=== PATIENT | male | born 1955 | race Caucasian/White ===

== ENCOUNTER → 2019-09-05 09:10 | Outpatient (CLI) | payer MEDICARE, OTHER, SELFPAY ==
--- NOTE | ~2019-09-05 | DEXA_ITS ---
Bone Density Report Name: Valentino Navarro Age: 64 Sex: Male Ethnicity: White Date of : 1955 Indication: parental hip fracture; height loss; postmenopausal Referring Provider: DAVID TOLENTINO Study: Bone densitometry was performed. Exam Date: September 05, 2019 Accession number: [id number] Bone Density: Region BMD T-score Z-score Classification AP Spine (L1-L4) 1.450 3.3 4.0 Normal Femoral Neck (Left) 0.869 -0.4 0.6 Normal Total Hip (Left) 1.085 0.3 0.9 Normal Femoral Neck (Right) 0.839 -0.7 0.4 Normal Total Hip (Right) 1.063 0.2 0.7 Normal Total Hip Mean 1.074 0.3 0.8 Normal World Health Organization criteria for BMD impression classify patients as: Normal (T-score at or above -1.0), Osteopenia (T-score between -1.0 and -2.5), or Osteoporosis (T-score at or below -2.5). 10-year Fracture Risk: FRAX not reported because: All T-scores for Spine Total, Hip Total, Femoral Neck at or above -1.0 Treated for osteoporosis Clinical Information Provided by Patient: Parent has had a hip fracture Is being treated for osteoporosis Has used the following medications: HRT (i.e. estrogen/hormone therapy), Vitamin D, Calcium Patient maximum height was 74 Drinks caffeinated beverages Number of children 0 Impression: The patient has normal bone mass. The patient has risk factors, including: parental hip fracture. Discussion: It is important to ask patients whether they are taking their medications and to encourage continued and appropriate compliance with their osteoporosis therapies to reduce fracture risk. It is also important to review their risk factors and encourage appropriate calcium and vitamin D intakes, exercise, fall prevention and other lifestyle measures. Follow-Up: Consider repeating this study in 2 years to reassess this patient's status, or sooner if there is some new clinical indication. Reported by: [facility] on 09/05/2019 9:54:00 AM. Reviewed, dictated and finalized at location AFrancisco J REY
== END ==
DX: C61 Malignant neoplasm of prostate (principal); Z79.818 Long term (current) use of other agents affecting estrogen receptors and estrogen levels
CPT/HCPCS: 77080

== ENCOUNTER 2021-08-19 11:30 | Outpatient (RCR) | payer MEDICARE, SELFPAY ==
[2021-08-19 12:35] VITALS: BP 133/66; PULSE 92; RESP 20; TEMP 36.3; O2SAT 96
[2021-08-19] MEDS: FAMOTIDINE 20 MG TABLET PO (12:40)
[2021-08-19] MEDS: diphenhydrAMINE HCl CAP 25 MG CAPSULE PO (12:40)
[2021-08-19] MEDS: ACETAMINOPHEN 325 MG TABLET 650 MG PO (12:40)
[2021-08-19] MEDS: BEBTELOVIMAB 175 MG/2 ML VIAL IV PUSH (13:02)
[2021-08-19 13:45] VITALS: BP 138/68; PULSE 78; O2SAT 96
== END 2021-08-19 16:00 ==
LOC: AMCINF 11:30
PROVIDERS: PCP Family Medicine; Referring Provider Family Medicine; Visit Provider Internal Medicine Hematology & Oncology
DX: U07.1 COVID-19 (principal); E11.9 Type 2 diabetes mellitus without complications; I10 Essential (primary) hypertension
CPT/HCPCS: A9270; M0222; Q0222

== ENCOUNTER 2021-09-27 14:01 | Outpatient (CLI) | payer MEDICARE, SELFPAY ==
--- NOTE | ~2021-09-27 | XR_ITS ---
XR thoracic spine 3V DATE: 09/27/2021 14:27 INDICATION: Thoracic spine pain following a fall 2 days ago. TECHNIQUE: AP, lateral, swimmer views COMPARISON: None FINDINGS: There is ossification along the anterior longitudinal ligament from C2 throughout the thora cic spine. There is prominent degenerative spurring in the upper lumbar spine. There is minimal anterolisthesis at C4-5. No fracture or dislocation or bone destruction of the thoracic spine. The thoracic pedicles are intac t. IMPRESSION: Bridging osteophytes throughout the anterior cervical spine and continuing through the th oracic spine No fracture or dislocation or bone destruction of the thoracic spine Prominent degenerative spurring of the upper lumbar spine Reviewed, dictated and finalized at location B. IMPRESSION: Bridging osteophytes throughout the anterior cervical spine and con tinuing through the thoracic spine No fracture or dislocation or bone destruction of the thoracic spine Prominent degenerative spurring of the upper lumbar spine
== END 2021-09-27 14:02 | disposition home or self-care (01) ==
PROVIDERS: PCP Family Medicine; Visit Provider Family Medicine
DX: M54.6 Pain in thoracic spine (principal); M77.8 Other enthesopathies, not elsewhere classified; M46.06 Spinal enthesopathy, lumbar region
CPT/HCPCS: 72072

== ENCOUNTER → 2021-10-07 09:56 | Outpatient (CLI) | payer MEDICARE, SELFPAY ==
--- NOTE | ~2021-10-07 | US_ITS ---
US right upper quadrant INDICATION: Abnormal liver enzymes PROCEDURE: Realtime right upper abdominal ultrasound. COMPARISON: No prior studies for comparison. FINDINGS: The pancreas is normal without focal mass or pancreatic ductal dilation. Echotexture is in creased, consistent with fatty infiltration. There is normal directional flow in the portal vein. There are echogenic mobile foci in the gallbladder lumen, suspicious for gallstones. Common bile heide t measures 5 mm mm. No sonographic Jeff's sign. IMPRESSION: 1: Multiple echogenic foci of the gallbladder, most likely gallstones. 2: Hepatic steatosis. Reviewed, dictated and finalized at location A.
== END ==
PROVIDERS: PCP Family Medicine; Visit Provider Family Medicine
DX: R74.8 Abnormal levels of other serum enzymes (principal); K76.0 Fatty (change of) liver, not elsewhere classified; R93.5 Abnormal findings on diagnostic imaging of other abdominal regions, including retroperitoneum
CPT/HCPCS: 76705

== ENCOUNTER 2023-08-31 00:07 | Day surgery (SDC) | payer MEDICARE, SELFPAY ==
[2023-08-24 12:20] VITALS: BMI 32.8
--- NOTE | 2023-08-24 12:40 | PC.NURSE ---
Spoke with PATIENT regarding medication XARELTO. Pt. verbalizes understanding that the last dose of XARELTO is to be taken on 08/28/2023 and the Endoscopist will instruct them when to restart after the procedure.
[2023-08-31 07:30] VITALS: BP 135/68; PULSE 62; RESP 17; TEMP 36.2; O2SAT 100
[2023-08-31] MEDS: LACTATED RINGERS 1,000 ML 150 ML IV CONT (07:33)
[2023-08-31 07:35] LABS: Glucose Point of Care 119 mg/dl (65-105)
--- NOTE | 2023-08-31 08:10 | WPDANESEPPF ---
Anes - Initial Pre Proc Eval Procedure: Operation Date: 08/31/23 08:30 Proposed Procedures p Colonoscopy - Bimal White MD Date/Time: 08/31/23 08:10 Surgeon: Bimal White MD Pre Op Diagnosis: Personal hx. colon polyps Patient Data Age: 68 Gender: M Height: 1.88 m Weight: 113.4 kg Allergies Allergy/AdvReac Type Severity Reaction Status Date / Time No Known Allergies Allergy Verified 08/31/23 07:15 Home Medications Medication Instructions Recorded Confirmed Type blood-glucose meter #1 ea 01/18/21 05/04/23 Rx blood-glucose meter (OneTouch #1 ea 01/25/21 05/04/23 Rx Verio Flex Start kit) blood sugar diagnostic (OneTouch #100 ea 02/20/21 05/04/23 Rx Verio test strips) lancets 30 gauge #100 ea 02/26/21 05/04/23 Rx rivaroxaban 20 mg tablet (Xarelto) 20 mg PO QPM 04/14/22 08/31/23 History tirzepatide 10 mg/0.5 mL 10 mg (0.5 mL) subcut WEEKLY #2 mL 01/27/23 08/24/23 Rx subcutaneous pen injector oxybutynin chloride 15 mg See Rx Instructions .Route 03/16/23 08/24/23 Rx tablet,extended release 24 hr .COMPLEX #90 tabs chlorthalidone 25 mg tablet See Rx Instructions .Route 04/20/23 08/24/23 Rx .COMPLEX #90 tabs atorvastatin 10 mg tablet See Rx Instructions .Route 05/18/23 08/24/23 Rx .COMPLEX #90 tabs glimepiride 4 mg tablet See Rx Instructions .Route 05/18/23 08/24/23 Rx .COMPLEX #180 tabs metformin 1,000 mg tablet See Rx Instructions .Route 06/11/23 08/24/23 Rx .COMPLEX #180 tabs propranolol 60 mg capsule,24 See Rx Instructions .Route 08/25/23 08/31/23 Rx hr,extended release .COMPLEX #90 caps tamsulosin 0.4 mg capsule See Rx Instructions .Route 08/25/23 08/31/23 Rx .COMPLEX #180 caps Laboratory Tests 08/31/23 07:30 POC Capillary Glucose 119 H mg/dl (65-105) Patient hx anesthesia problems: none Family hx anesthesia problems: none Results Review: All pre-operative results and documents have been reviewed as part of the pre-operative evaluation. [facility] Past Medical History Medical History Dyslipidemia Essential (primary) hypertension Essential tremor Obstructive sleep apnea (adult) (pediatric) Osteoarthritis Paroxysmal atrial fibrillation Prostate cancer (~2018) Type 2 diabetes mellitus without complication, without long-term current use of insulin Surgical History Surgical History S/P partial resection of colon Total knee replacement status (~2017) Family History Family History Grandparent Diabetes mellitus Sibling Hypertension Patient's sister is in good health Patient's brother is in good health Father Hypertension, Onset Age: 55 Heart disease Mother Lung disease Other Family history of cardiovascular disease Social History Social History Smoking status: Never smoker Alcohol intake: current Substance use: never Substance use type: does not use Lack of Transportation: No Lack of Food: Never True Current Housing: I Have Housing Concerned About Future Housing: No Difficulty Paying Gas/Electric Bills: No Difficulty Paying for Meds: No Currently Unemployed: No Education: High School Diploma/GED Difficulty w/ Childcare or Family Care: No Living arrangements: with family Spiritual care concerns: No Anes - Eval Final PreProcedure Day of Procedure 08/31/23 08:10 Patient weight: obese Heart: irregular rhythm Lungs: clear to auscultation Airway: Mallampati scale class II Neurological: alert and oriented Last oral intake: >/= 8 hours ASA classification: III Emergent: no Anesthetic plan: proceed Anesthesia type and monitoring: general GIVS and standard monitoring Results Review: All pre-operative results and documents have been revie
--- NOTE | 2023-08-31 08:27 | PM.HPGS ---
History of Present Illness History of Present Illness Consent: Risks, benefits, and alternatives have been discussed and questions answered. Patient agrees to proceed with procedure. Chief complaint: Personal hx. colon polyps Narrative: Valentino Navarro is a 68 year old male with history of colon polyps Review of Systems Review of Systems: All systems reviewed & are unremarkable except as noted in HPI and below PMFSH Past Medical History Medical History Dyslipidemia Essential (primary) hypertension Essential tremor Obstructive sleep apnea (adult) (pediatric) Osteoarthritis Paroxysmal atrial fibrillation Prostate cancer (~2018) Type 2 diabetes mellitus without complication, without long-term current use of insulin Surgical History Surgical History S/P partial resection of colon Total knee replacement status (~2017) Family History Family History Grandparent Diabetes mellitus Sibling Hypertension Patient's sister is in good health Patient's brother is in good health Father Hypertension, Onset Age: 55 Heart disease Mother Lung disease Other Family history of cardiovascular disease Social History Social History Smoking status: Never smoker Alcohol intake: current Substance use: never Substance use type: does not use Lack of Transportation: No Lack of Food: Never True Current Housing: I Have Housing Concerned About Future Housing: No Difficulty Paying Gas/Electric Bills: No Difficulty Paying for Meds: No Currently Unemployed: No Education: High School Diploma/GED Difficulty w/ Childcare or Family Care: No Living arrangements: with family Spiritual care concerns: No Meds Home Medications and Allergies Home Medications Medication Instructions Recorded Confirmed Type blood-glucose meter #1 ea 01/18/21 05/04/23 Rx blood-glucose meter (OneTouch #1 ea 01/25/21 05/04/23 Rx Verio Flex Start kit) blood sugar diagnostic (OneTouch #100 ea 02/20/21 05/04/23 Rx Verio test strips) lancets 30 gauge #100 ea 02/26/21 05/04/23 Rx rivaroxaban 20 mg tablet (Xarelto) 20 mg PO QPM 04/14/22 08/31/23 History tirzepatide 10 mg/0.5 mL 10 mg (0.5 mL) subcut WEEKLY #2 mL 01/27/23 08/24/23 Rx subcutaneous pen injector oxybutynin chloride 15 mg See Rx Instructions .Route 03/16/23 08/24/23 Rx tablet,extended release 24 hr .COMPLEX #90 tabs chlorthalidone 25 mg tablet See Rx Instructions .Route 04/20/23 08/24/23 Rx .COMPLEX #90 tabs atorvastatin 10 mg tablet See Rx Instructions .Route 05/18/23 08/24/23 Rx .COMPLEX #90 tabs glimepiride 4 mg tablet See Rx Instructions .Route 05/18/23 08/24/23 Rx .COMPLEX #180 tabs metformin 1,000 mg tablet See Rx Instructions .Route 06/11/23 08/24/23 Rx .COMPLEX #180 tabs propranolol 60 mg capsule,24 See Rx Instructions .Route 08/25/23 08/31/23 Rx hr,extended release .COMPLEX #90 caps tamsulosin 0.4 mg capsule See Rx Instructions .Route 08/25/23 08/31/23 Rx .COMPLEX #180 caps Allergies Allergy/AdvReac Type Severity Reaction Status Date / Time No Known Allergies Allergy Verified 08/31/23 07:15 Exam Const: General: comfortable and no acute distress HENMT: Face/Nose/Sinus: Normal nares present Eyes: General: appearance normal, both eyes and all related structures Neck: Neck: no JVD Resp: Auscultation: clear to auscultation bilaterally Cardio: Rate: regular rate Rhythm: regular rhythm GI: Inspection: non-distended GI Palp: Yes Soft to palpation Skin: General skin exam: normal color Neuro: General: gait normal Speech: normal speech Extrem: General: normal to inspection Psych: Mental Status: mental status grossly normal Assessment and Plan Assessment and plan (1)
[2023-08-31 08:50] VITALS: BP 106/57; PULSE 60; RESP 14; O2SAT 97
[2023-08-31 09:00] VITALS: BP 109/64; PULSE 65; RESP 25; O2SAT 95
[2023-08-31 09:10] VITALS: BP 111/67; PULSE 56; RESP 21; O2SAT 100
== END 2023-08-31 09:16 | disposition home or self-care (01) ==
PROVIDERS: PCP Family Medicine; Visit Provider Internal Medicine Gastroenterology
PROC: 0DJD8ZZ Inspection of Lower Intestinal Tract, Via Natural or Artificial Opening Endoscopic (ICD-10-PCS; CPT 45378; principal; 2023-08-31 08:30)
DX: Z12.11 Encounter for screening for malignant neoplasm of colon (principal); D12.2 Benign neoplasm of ascending colon; D12.4 Benign neoplasm of descending colon; D12.8 Benign neoplasm of rectum; K57.30 Diverticulosis of large intestine without perforation or abscess without bleeding; K64.8 Other hemorrhoids; Z98.0 Intestinal bypass and anastomosis status; Z90.49 Acquired absence of other specified parts of digestive tract; I10 Essential (primary) hypertension; I48.0 Paroxysmal atrial fibrillation; E78.5 Hyperlipidemia, unspecified; E11.9 Type 2 diabetes mellitus without complications; G25.0 Essential tremor; Z85.46 Personal history of malignant neoplasm of prostate; E66.9 Obesity, unspecified; Z68.32 Body mass index [BMI] 32.0-32.9, adult; Z79.01 Long term (current) use of anticoagulants; Z79.85 Long-term (current) use of injectable non-insulin antidiabetic drugs; Z79.84 Long term (current) use of oral hypoglycemic drugs
CPT/HCPCS: 45385; 82948; 88305; J2704; J7120

== ENCOUNTER 2024-04-08 13:35 | Outpatient (CLI) | payer MEDICARE, SELFPAY ==
--- NOTE | ~2024-04-08 | XR_ITS ---
EXAMINATION: XR abdomen/kub 1V DATE: 04/08/2024 13:57 INDICATION: Calculus of kidney. TECHNIQUE: A supine view of the abdomen on 2 radiographs was obtained. COMPARISON: CT abdomen and pelvis 01/01/2018 FINDINGS: There are no dilated loops of bowel. There is a small volume of stool in the colon. There a re 2 stones in the right kidney with the larger measuring 5 mm. There are approximately 6 stones in l eft kidney measuring up to 13 mm. There is a 7 mm calcification in the expected area of proximal left ureter that may be a stone. IMPRESSION: 1. 7 mm calcification in the expected area of proximal left ureter that may be a stone. 2. Bilateral kidney stones. Reviewed, dictated and finalized at location [facility]. [facility] REPRESENTATIVE [employer]
--- OUTSIDE RECORDS SUMMARY | 2024-04-08 13:39 | XMS_ITS | Encounter Summary ---
Author Organization [facility] Healthcare Address [address] [place] [address] Care Team Providers Care Supervisor Esters And Emulsifiers Name Role Phone Cinthia Bradford MD Unavailable [phone] Frankie Nogueira MD, Giorgi Perry Unavailable Robe Brenner MD Unavailable [phone] Robby Rock MD Unavailable [phone] Moe Boyd MD Unavailable [phone] Manny Martinez MD Unavailable [phone] Cinthia Bradford MD Primary Care Provider Abhinav Adams MD Primary Care Provider [phone] Brittanie Johnson NP Unavailable [phone] Savanah Das DO Primary Care Provider + [phone] Encounter Details Date Type Department Care Team (Late st Contact Info) Description 06/22/[address] 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 Gender Identity Male 11/10/2022 9:57 PM CDT Sexual Orientation Straight 11/10/2022 9: 57 PM CDT documented as of this encounter Plan of Treatment Not on file documented as of this encounter Visit Diagnoses Not on filedocumented in this encounter Care Teams Supervisor Esters And Emulsifiers Relationship Specialty Start Date End Date Cinthia Bradford MD PCP - General 04/22/18 08/26/18 Abhinav Adams MD [address] [place] [address] PCP - General 08/27/18 01/10/21 Savanah Das DO [address] [place] [address] PCP - General Family Medicine 01/11/21 Cinthia Bradford MD Family Practice 04/01/18 Giorgi David Jr., MD Referring Physician Urology 02/08/18 Robe Brenner MD [address] [address] Consulting Physician Urology 02/08/18 Robby Rock MD [address] [facility] [address] [place] [address] Medical Oncologist/Wire Sawyer Medical Oncology 02/08/18 Moe Boyd MD [address] [place] [address] Radiation Oncologist Radiation Oncology 03/04/18 Manny Martinez MD [address] [facility] [address] [place] [address] Referring Physician Medical Oncology 03/04/18 Brittanie Johnson NP [address] [facility] [address] [place] [address] Nurse Practitioner Nurse Practitioner 07/13/20 documented as of this encounter
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
--- OUTSIDE RECORDS SUMMARY | 2024-04-08 13:39 | XMS_ITS | Clinical Summary ---
Author Organization [facility] Address [address] [place] [id number] Care Team Providers Care Rubber Stamp Maker Name Role Phone Unavailable Primary Care Provider Unavailabl e Social History Tobacco Use Types Packs/Day Years Used Date Smoking Tobacco: Never Assessed Sex and Gender Information Value Date Recorded Sex Assigned at Not on file Legal Sex Male 4:11 PM CDT Gender Identity Not on file Sexual Orientation Not on file Plan of Treatment Health Maintenance Due Date Last Done Comments Colorectal Cancer Screening Colonoscopy (10 Years) 1955 Hepatitis C 1972 DTaP, Tdap and Td Vaccines ( 1 - Tdap) 1973 Zoster Vaccines (1 of 2) 2004 Pneumococcal Vaccine: 65+ Ye ars (1 of 1 - PCV) 05/24/2019 COVID-19 Vaccine ( - 2023-2 5 season) 2023 Influenza Adult (#1) 2023 RSV Immunization or 60+ Years (1 - 1-dose 75+ series) 2029 Meningococcal B Vaccine Aged Out No l onger eligible based on patient's age to complete this topic Meningococcal Vaccine Aged Out No kristopher luana eligible based on patient's age to complete this topic RSV Immunizations Under 20 Months Aged Out No longer eligible based on patient's age to complete this topic
--- OUTSIDE RECORDS SUMMARY | 2024-04-08 13:39 | XMS_ITS | Encounter Summary ---
Author Organization [facility] Healthcare Address [address] [place] [address] Care Team Providers Care Ocean Forwarder Name Role Phone Cinthia Bradford MD Unavailable [phone] Frankie Nogueira MD, Giorgi Perry Unavailable Robe Brenner MD Unavailable [phone] Robby Rock MD Unavailable [phone] Moe Boyd MD Unavailable [phone] Manny Martinez MD Unavailable [phone] Abhinav Adams MD Primary Care Provider +- [phone] Brittanie Johnson NP Unavailable +[phone] Savanah Das DO Primary Care Provider +[phone]- [phone] Encounter Details Date Type Department Care Team (Late st Contact Info) Description 08/31/2018 Telephone [facility] Radiation Oncology at [facility] [address] [place] [address] Clarisse Perrin MA Social History Tobacco Use Types Packs/Day Years Used Date Smoking Tobacco: Never Smokeless Tobacco: Never Alcohol Use Standard Drinks/Week Comments Yes 1 (1 standard drink = 0.6 oz pur e alcohol) Sex and Gender Information Value Date Recorded Sex Assigned at Not on file 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 Gender Identity Male 11/10/2022 9:57 PM CDT Sexual Orientation Straight 11/10/2022 9: 57 PM CDT documented as of this encounter Plan of Treatment Not on file documented as of this encounter Visit Diagnoses Not on filedocumented in this encounter Care Teams Ocean Forwarder Relationship Specialty Start Date End Date Abhinav Adams MD [address] [place] [address] PCP - General 08/27/18 01/10/21 Savanah Das DO [address] [place] [address] PCP - General Family Medicine 01/11/21 Cinthia Bradford MD Family Practice 04/01/18 Giorgi David Jr., MD Referring Physician Urology 02/08/18 Robe Brenner MD [address] [place] [address] Consulting Physician Urology 02/08/18 Robby Rock MD 10 [facility] [address] [place], [place] [address] Medical Oncologist/Supervisor Of Communications Medical Oncology 02/08/18 Moe Boyd MD [address] [place], [place] [address] Radiation Oncologist Radiation Oncology 03/04/18 Manny Martinez MD [address] [place] [address] Referring Physician Medical Oncology 03/04/18 Brittanie Johnson NP [address] [facility] [address] LL LL [address] [place] [address] Nurse Practitioner Nurse Practitioner 07/13/20 documented as of this encounter
--- OUTSIDE RECORDS SUMMARY | 2024-04-08 13:39 | XMS_ITS | Encounter Summary ---
Author Organization [facility] Address [address] [place] [address] Care Team Providers Care Contamination Consultant Name Role Phone Cinthia Bradford MD Primary Care Provider Moe Boyd MD Primary Care Provider Cinthia Bradford MD Unavailable + [phone] Frankei Nogueira MD, Giorgi Perry Unavailable Robe Brenner MD Unavailable [phone] Robby Rock MD Unavailable [phone] Moe Boyd MD Unavailable [phone] Manny Martinez MD Unavailable [phone] Cinthia Bradford MD Primary Care Provider Abhinav Adams MD Primary Care Provider + [phone] Brittanie Johnson NP Unavailable [phone] Savanah Das DO Primary Care Provider + [phone] Encounter Details Date Type Department Care Team (Late st Contact Info) Description 03/04/[address] 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 Gender Identity Male 11/10/2022 9:57 PM CDT Sexual Orientation Straight 11/10/2022 9: 57 PM CDT documented as of this encounter Plan of Treatment Not on file documented as of this encounter Visit Diagnoses Not on filedocumented in this encounter Care Teams Contamination Consultant Relationship Specialty Start Date End Date Cinthia Bradford MD PCP - General Family Practice 07/15/17 03/31/18 Moe Boyd MD [address] [place] [address] PCP - General 04/01/18 04/21/18 Cinthia Bradford MD PCP - General 04/22/18 08/26/18 Abhinav Adams MD [address] [place] [address] PCP - General 08/27/18 01/10/21 Savanah Das DO [address] [place] [address] PCP - General Family Medicine 01/11/21 Cinthia Bradford MD Family Practice 04/01/18 Giorgi David Jr., MD [address] LL [facility] [address] [place] [address] Referring Physician Urology 02/08/18 Robe Brenner MD [address] [place] [address] Consulting Physician Urology 02/08/18 Robby Rock MD 10 [facility] [address] [place] [address] Medical Oncologist/Long Wall Mining Machine Helper Medical Oncology 02/08/18 Moe Boyd MD [address] [facility] [address] LL LL [address] [place] [address] Radiation Oncologist Radiation Oncology 03/04/18 Manny Martinez MD 10 [facility] [address] [place] [address] Referring Physician Medical Oncology 03/04/18 Brittanie Johnson NP [address] [facility] [address] LL [address] [place] [address] Nurse Practitioner Nurse Practitioner 07/13/20 documented as of this encounter
--- OUTSIDE RECORDS SUMMARY | 2024-04-08 13:39 | XMS_ITS | Referral Summary ---
Author Organization [facility] [address] [place] [address] [address] [place] [address] Care Team Providers Care Associate Account Manager Name Role Phone Cinthia Bradford MD Unavailable Frankie Nogueira MD, Giorgi Perry Unavailable Robe Brenner MD Unavailable [phone] Robby Rock MD Unavailable Moe Boyd MD Unavailable Manny Martinez MD Unavailable Brittanie Johnson NP Unavailable Savanah Das DO Primary Care Provider +- [phone] Encounters Date Type Department Care Team Description 03/15/2024 Telephone [facility] Cardiology [address] [place] [address] Cam Eugene MD Med Refill from Last 3 Months Allergies No known active allergies Medications glimepiride [...] MD on 03/04/2018 Chronic atrial fibrillation 09/22/2017 Social History Tobacco Use Types Packs/Day Years Used Date Smoking Tobacco: Never Cigarettes Smokeless Tobacco: Never Tobacco Cessation:Counseling Given: Not Answered Alcohol Use Standard Drinks/Week Comments Yes 1 (1 standard drink = 0.6 oz pur e alcohol) Sex and Gender Information Value Date Recorded Sex Assigned at Not on file Legal Sex Male 5:20 PM IC ENGINEER Gender Identity Male 11/10/2022 9:57 PM CDT Sexual Orientation Straight 11/10/2022 9: 57 PM CDT Last Filed Vital Signs Vital Sign Reading Time Taken Comments Blood Pressure 120/64 05/06/2023 9:03 AM IC ENGINEER Pulse 57 05/06/2023 9:03 AM IC ENGINEER Temperature 36.5 C (97.7 F) 02/25/2019 9:18 AM IC ENGINEER Respiratory Rate 18 02/25/2019 9:18 AM IC ENGINEER Oxygen Saturation 96% 05/06/2023 9:03 AM IC ENGINEER Inhaled Oxygen Concentration - - Weight 117.4 kg (258 lb 12.8 oz) 05/15/2023 9:17 AM CDT Height 185.4 cm (6' 1 ) 05/06/2023 9:03 AM IC ENGINEER Body Mass Index 34.14 05/06/2023 9:03 AM IC ENGINEER Plan of Treatment Not on file Procedures Procedure Name Priority Date/Time Associated Diagnosis Comments PSA DIAGNOSTIC Routine 05/08/2023 7:54 AM IC ENGINEER Prostate cancer (HCC) from Last 3 Months or Most Recently Relevant to Health Maintenance Results * PSA diagnostic (05/08/2023 7:54 AM IC ENGINEER) [facility] PSA 0.2 0.0 - 4.0 ng/mL [facility] - Comment: Hebert ECLIA methodology. According to the [place] [employer], Serum PSA should decrease and [...] of malignant disease. Blood 05/08/2023 7:54 AM IC ENGINEER 05/08/2023 Narrative [facility] - 05/09/2023 5:08 PM IC ENGINEER Performed at: [address] [place], [place] [address], [place] [id number] Supervisor Tumblers: Sampson Bruks PhD, Phone: [phone] [facility] Mine Johnson NP LAB BLOOD ORDERABLES F inal Result [facility] - 01 from Last 3 Months or Most Recently Relevant to Health Maintenance Insurance MEDICARE SOLUTIONS [facility] MEDICARE Address: [address] [address] MEDICARE Address: [facility] [address] [place] [address] [facility] MEDICARE Address: [address] [address] Care Teams Associate Account Manager Relationship Specialty Start Date End Date Savanah Das DO [address] [place] [address] PCP - General Family Medicine 01/11/21 Cinthia Bradford MD Family Practice 04/01/18 Giorgi David Jr., MD Referring Physician Urology 02/08/18 Robe Brenner MD [address] [place] [id number] Consulting Physician Urology 02/08/18 Robby Rock MD 10 [facility] [address] [place], [place] [id number] Medical Oncologist/Dean Of Women Medical Oncology 02/08/18 Moe Boyd MD [address] [place], [place] [address] Radiation Oncologist Radiation Oncology 03/04/18 Manny Martinez MD [address] [place] [address] Referring Physician Medical Oncology 03/04/18 Brittanie Johnson NP [address] [facility] [address] [place] [address] Nurse Practitioner Nurse Practitioner 07/13/20
--- OUTSIDE RECORDS SUMMARY | 2024-04-08 13:39 | XMS_ITS ---
Author Organization [facility] [address] Address [address] [place] [address] Care Team Providers Care Color Paste Mixer Name Role Phone Cinthia Bradford MD Unavailable Frankie Nogueira MD, Giorgi Perry Unavailable [phone] Robe Brenner MD Unavailable [phone] Robby Rock MD Unavailable Moe Boyd MD Unavailable Manny Martinez MD Unavailable Brittanie Johnson NP Unavailable [phone] Savanah Das DO Primary Care Provider [phone]- [phone] Active Problems Problem Noted Date Diagnosed Date Paroxysmal atrial fibrillation (CMS/HCC) 022 Encounter for follow-up surveillance of prostate cancer 06/18/2018 Prostate cancer 02/19/2018 Cancer Staging:Clinical stage from 03/04/2018:Stage CATRACHITO(cT3b, cN1, cM0, PSA: 32, Grade Group: 3) - Signed by Jonathan Katz MD on 03/04/2018 Chronic atrial fibrillation 09/22/2017 Current Oncology Plans LEUPROLIDE (LUPRON) FOR RADIATION ONCOLOGY* Plan Start Date:02/25/2019 Plan Provider:Moe Boyd MD Linked Problems Prostate cancer (HCC) Treatment Medications leuprolide acetate (6 month) (LUPRON) syringe kit Past Plans Specialty Infusion Treatment Plan Name Start Date Discontinue Date Treatment Medications Discontinue Reason Plan Provider LEUPROLIDE (LUPRON) FOR RADIATION ONCOLOGY 08/27/2018 11/26/2018 leuprolide acetate (6 month) (LUPRON) syringe kit Therapy Complete Moe Boyd MD Radiation Treatments * Plan Last Treated On Elapsed Days Fractions Treated Prescribed Fraction Dose Prescribed Total Dose PELVIS 05/24/2018 34 25 220 cGy 5,500 cGy Reference Point Last Treated On Elapsed Days Session Dose Total Dose Pelvis_Nodes 05/24/2018 34 220 cGy 5,500 cGy
== END 2024-04-08 13:36 | disposition home or self-care (01) ==
PROVIDERS: PCP Family Medicine; Visit Provider Family Medicine
DX: N28.89 Other specified disorders of kidney and ureter (principal); N20.0 Calculus of kidney
CPT/HCPCS: 74018

== ENCOUNTER 2024-04-11 12:21 | Outpatient (CLI) | payer MEDICARE, SELFPAY ==
--- OUTSIDE RECORDS SUMMARY | 2024-04-11 12:38 | XMS_ITS | Clinical Summary ---
Author Organization [facility] [address] Address [address] [place] [address] Care Team Providers Care Channel Cementer Name Role Phone Cinthia Bradford MD Unavailable [phone] Frankie Nogueira MD, Giorgi Perry Unavailable Robe Brenner MD Unavailable [phone] Robby Rock MD Unavailable [phone] Moe Boyd MD Unavailable Manny Martinez MD Unavailable [phone] Brittanie Johnson NP Unavailable [phone] Savanah Das DO Primary Care Provider +- [phone] Allergies No known active allergies Medications glimepiride [...] Type Department Care Team Description 03/15/2024 Telephone [facility] Cardiology [address] [place] [address] Cam Eugene MD Med Refill [...] Father (Age 55) presumed f rom fatal [place] in his sleep Mother Mother (Age 73) [...] on file Legal Sex Male 5:20 PM PURSE 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 Gender Identity Male 11/10/2022 9:57 PM CDT Sexual Orientation Straight 11/10/2022 9: 57 PM CDT Obstetrics History Last Filed Vital Signs Vital Sign Reading Time Taken Comments Blood Pressure 120/64 05/06/2023 9:03 AM PURSE SEINER Pulse 57 05/06/2023 9:03 AM PURSE SEINER Temperature 36.5 C (97.7 F) 02/25/2019 9:18 AM PURSE SEINER Respiratory Rate 18 02/25/2019 9:18 AM PURSE SEINER Oxygen Saturation 96% 05/06/2023 9:03 AM PURSE SEINER Inhaled Oxygen Concentration - - Weight 117.4 kg (258 lb 12.8 oz) 05/15/2023 9:17 AM CDT Height 185.4 cm (6' 1 ) 05/06/2023 9:03 AM PURSE SEINER Body Mass Index 34.14 05/06/2023 9:03 AM PURSE SEINER Plan of Treatment Health Maintenance Due Date [...] Comments PSA DIAGNOSTIC Routine 05/08/2023 7:54 AM PURSE SEINER Prostate cancer (HCC) from Last 3 Months or Most Recently Relevant to Health Maintenance Results * PSA diagnostic (05/08/2023 7:54 AM PURSE SEINER) PSA 0.2 0.0 - 4.0 ng/mL [facility] - Comment: Hebert ECLIA methodology. According to the [place] U[employer], Serum PSA should decrease and [...] of malignant disease. Blood 05/08/2023 7:54 AM PURSE SEINER 05/08/2023 Narrative [facility] - 05/09/2023 5:08 PM PURSE SEINER Performed at: - [facility] [id number] Ornamental Plasterer Helper: Sampson Burks PhD, Phone: [phone] [facility] Mine Johnson NP LAB BLOOD ORDERABLES F inal Result [facility] - 01 from Last 3 Months or Most Recently Relevant to Health Maintenance Insurance MEDICARE SOLUTIONS [place] [id number] [facility] MDCR HMO REF [place] [id number] Care Teams Channel Cementer Relationship Specialty Start Date End Date Savanah Das DO [address] LL [facility] [address] [place] [address] PCP - General Family Medicine 01/11/21 Cinthia Bradford MD Family Practice 04/01/18 Giorgi David Jr., MD Referring Physician Urology 02/08/18 Robe Brenner MD [address] [address] Consulting Physician Urology 02/08/18 Robby Rock MD [facility] [address] [place], [place] [id number] Medical Oncologist/Consumer Loan Underwriter Medical Oncology 02/08/18 Moe Boyd MD [address] LL [facility] [address] [place] [address] Radiation Oncologist Radiation Oncology 03/04/18 Manny Martinez MD [address] LL [facility] [address] [place] [address] Referring Physician Medical Oncology 03/04/18 Brittanie Johnson NP [address] LL [facility] [address] [place] [address] Nurse Practitioner Nurse Practitioner 07/13/20
--- OUTSIDE RECORDS SUMMARY | 2024-04-11 12:38 | XMS_ITS | Encounter Summary ---
Author Organization [facility] Address [address] [place] [address] Care Team Providers Care Social Service Director Name Role Phone Cinthia Bradford MD Primary Care Provider Moe Boyd MD Primary Care Provider [phone] Cinthia Bradford MD Unavailable + [phone] Frankie Nogueira MD, Giorgi Perry Unavailable Robe Brenner MD Unavailable [phone] Robby Rock MD Unavailable [phone] Moe Boyd MD Unavailable [phone] Manny Martinez MD Unavailable [phone] Cinthia Bradford MD Primary Care Provider Abhinav Adams MD Primary Care Provider + [phone] Brittanie Johnson NP Unavailable [phone] Savanah Das DO Primary Care Provider + [phone] Encounter Details Date Type Department Care Team (Late st Contact Info) Description 03/04/2018 Telephone [facility] Radiation Oncology at [facility] [address] [place] [address] Clarisse Perrin MA Social History Tobacco Use Types Packs/Day Years Used Date Smoking Tobacco: Never Smokeless Tobacco: Never Alcohol Use Standard Drinks/Week Comments Yes 1 (1 standard drink = 0.6 oz pur e alcohol) Sex and Gender Information Value Date Recorded Sex Assigned at Not on file Legal Sex Male 5:20 PM GROUP PRACTICE PEDIATRICIAN Gender Identity Male 11/10/2022 9:57 PM CDT Sexual Orientation Straight 11/10/2022 9: 57 PM CDT documented as of this encounter Plan of Treatment Not on file documented as of this encounter Visit Diagnoses Not on filedocumented in this encounter Care Teams Social Service Director Relationship Specialty Start Date End Date Cinthia Bradford MD PCP - General Family Practice 07/15/17 03/31/18 Moe Boyd MD [address] [place] [address] PCP - General 04/01/18 04/21/18 Cinthia Bradford MD PCP - General 04/22/18 08/26/18 Abhinav Adams MD [address] [place] [address] PCP - General 08/27/18 01/10/21 Savanah Das DO [address] [place] [address] PCP - General Family Medicine 01/11/21 Cinthia Bradford MD Family Practice 04/01/18 Giorgi David Jr., MD [address] LL [facility] [address] [place] [address] Referring Physician Urology 02/08/18 Robe Brenner MD [address] [place] [address] Consulting Physician Urology 02/08/18 Robby Rock MD 10 [facility] [address] [place] [address] Medical Oncologist/Metrologist Medical Oncology 02/08/18 Moe Boyd MD [address] [facility] [address] [place] [address] Radiation Oncologist Radiation Oncology 03/04/18 Manny Martinez MD 10 [facility] [address] [place] [address] Referring Physician Medical Oncology 03/04/18 Brittanie Johnson NP [address] [facility] [address] LL [address] [place] [address] Nurse Practitioner Nurse Practitioner 07/13/20 documented as of this encounter
--- OUTSIDE RECORDS SUMMARY | 2024-04-11 12:38 | XMS_ITS | Encounter Summary ---
Author Organization [facility] Healthcare Address [address] [place] [address] Care Team Providers Care Sexual Assault Social Worker Name Role Phone Cinthia Bradford MD Unavailable [phone] Frankie Nogueira MD, Giorgi Perry Unavailable Robe Brenner MD Unavailable [phone] Robby Rock MD Unavailable [phone] Moe Boyd MD Unavailable [phone] Manny Martinez MD Unavailable [phone] Abhinav Adams MD Primary Care Provider +- [phone] Brittanie Johnson NP Unavailable [phone] Savanah Das DO Primary Care Provider +[phone] Encounter Details Date Type Department Care Team (Late st Contact Info) Description 08/31/2018 Telephone [facility] Radiation Oncology at [facility] [address] [place] [address] Clarisse Perrin MA Social History Tobacco Use Types Packs/Day Years Used Date Smoking Tobacco: Never Smokeless Tobacco: Never Alcohol Use Standard Drinks/Week Comments Yes 1 (1 standard drink = 0.6 oz pur e alcohol) Sex and Gender Information Value Date Recorded Sex Assigned at Not on file Legal Sex Male 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 Gender Identity Male 11/10/2022 9:57 PM CDT Sexual Orientation Straight 11/10/2022 9: 57 PM CDT documented as of this encounter Plan of Treatment Not on file documented as of this encounter Visit Diagnoses Not on filedocumented in this encounter Care Teams Sexual Assault Social Worker Relationship Specialty Start Date End Date Abhinav Adams MD [address] [place] [address] PCP - General 08/27/18 01/10/21 Savanah Das DO [address] [place] [address] PCP - General Family Medicine 01/11/21 Cinthia Bradford MD Family Practice 04/01/18 Giorgi David Jr., MD Referring Physician Urology 02/08/18 Robe Brenner MD [address] [place] [address] Consulting Physician Urology 02/08/18 Robby Rock MD 10 [facility] [address] [place], [place] [id number] Medical Oncologist/Cut To Length Operator Medical Oncology 02/08/18 Moe Boyd MD [address] [place], [place] [id number] Radiation Oncologist Radiation Oncology 03/04/18 Manny Martinez MD [address] [place] [address] Referring Physician Medical Oncology 03/04/18 Brittanie Johnson NP [address] [facility] [address] [place] [address] Nurse Practitioner Nurse Practitioner 07/13/20 documented as of this encounter
--- OUTSIDE RECORDS SUMMARY | 2024-04-11 12:38 | XMS_ITS | Encounter Summary ---
Author Organization [facility] Healthcare Address [address] [place] [address] Care Team Providers Care Oil Speculator Name Role Phone Cinthia Bradford MD Unavailable [phone] Frankie Nogueira MD, Giorgi Perry Unavailable Robe Brenner MD Unavailable [phone] Robby Rock MD Unavailable [phone] Moe Boyd MD Unavailable [phone] Manny Martinez MD Unavailable [phone] Cinthia Bradford MD Primary Care Provider Abhinav Adams MD Primary Care Provider +- [phone] Brittanie Johnson NP Unavailable [phone] Savanah Das DO Primary Care Provider + [phone] Encounter Details Date Type Department Care Team (Late st Contact Info) Description 06/22/2018 Telephone [facility] Radiation Oncology at [facility] [address] [place] [address] Clarisse Perrin MA Social History Tobacco Use Types Packs/Day Years Used Date Smoking Tobacco: Never Smokeless Tobacco: Never Alcohol Use Standard Drinks/Week Comments Yes 1 (1 standard drink = 0.6 oz pur e alcohol) Sex and Gender Information Value Date Recorded Sex Assigned at Not on file Legal Sex Male 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 Gender Identity Male 11/10/2022 9:57 PM CDT Sexual Orientation Straight 11/10/2022 9: 57 PM CDT documented as of this encounter Plan of Treatment Not on file documented as of this encounter Visit Diagnoses Not on filedocumented in this encounter Care Teams Oil Speculator Relationship Specialty Start Date End Date Cinthia Bradford MD PCP - General 04/22/18 08/26/18 Abhinav Adams MD [address] [place] [address] PCP - General 08/27/18 01/10/21 Savanah Das DO [email or web address] [place] [address] PCP - General Family Medicine 01/11/21 Cinthia Bradford MD Family Practice 04/01/18 Giorgi David Jr., MD Referring Physician Urology 02/08/18 Robe Brenner MD [address] [address] Consulting Physician Urology 02/08/18 Robby Rock MD 10 [facility] [address] [place] [address] Medical Oncologist/Corporate Training Manager Medical Oncology 02/08/18 Moe Boyd MD [address] [place] [address] Radiation Oncologist Radiation Oncology 03/04/18 Manny Martinez MD [address] [facility] [address] [place] [address] Referring Physician Medical Oncology 03/04/18 Brittanie Johnson NP [address] [facility] [address] [place] [address] Nurse Practitioner Nurse Practitioner 07/13/20 documented as of this encounter
--- OUTSIDE RECORDS SUMMARY | 2024-04-11 12:38 | XMS_ITS | Clinical Summary ---
Author Organization [facility] Address [address] [place] [address] Care Team Providers Care Roll Out Manager Name Role Phone Unavailable Primary Care Provider [...]
--- OUTSIDE RECORDS SUMMARY | 2024-04-11 12:38 | XMS_ITS | Referral Summary ---
Author Organization [facility] [address] [place] [address] [address] [place] [address] Care Team Providers Care Release Manager Name Role Phone Cinthia Bradford MD Unavailable Frankie Nogueira MD, Giorgi Perry Unavailable Robe Brenner MD Unavailable [phone] Robby Rock MD Unavailable [phone] Moe Boyd MD Unavailable [phone] Manny Martinez MD Unavailable [phone] Brittanie Johnson NP Unavailable Savanah Das DO Primary Care Provider [phone] Encounters Date Type Department Care Team Description 03/15/2024 Telephone [facility] Cardiology [address] [place] [address] Cam Eugene MD Med Refill [...] on file Legal Sex Male 5:20 PM WANT AD RECEIVER Gender Identity Male 11/10/2022 9:57 PM CDT Sexual Orientation Straight 11/10/2022 9: 57 PM CDT Last Filed Vital Signs Vital Sign Reading Time Taken Comments Blood Pressure 120/64 05/06/2023 9:03 AM WANT AD RECEIVER Pulse 57 05/06/2023 9:03 AM WANT AD RECEIVER Temperature 36.5 C (97.7 F) 02/25/2019 9:18 AM WANT AD RECEIVER Respiratory Rate 18 02/25/2019 9:18 AM WANT AD RECEIVER Oxygen Saturation 96% 05/06/2023 9:03 AM WANT AD RECEIVER Inhaled Oxygen Concentration - - Weight 117.4 kg (258 lb 12.8 oz) 05/15/2023 9:17 AM CDT Height 185.4 cm (6' 1 ) 05/06/2023 9:03 AM WANT AD RECEIVER Body Mass Index 34.14 05/06/2023 9:03 AM WANT AD RECEIVER Plan of Treatment Not on file Procedures Procedure Name Priority Date/Time Associated Diagnosis Comments PSA DIAGNOSTIC Routine 05/08/2023 7:54 AM WANT AD RECEIVER Prostate cancer (HCC) from Last 3 Months or Most Recently Relevant to Health Maintenance Results * PSA diagnostic (05/08/2023 7:54 AM WANT AD RECEIVER) [facility] PSA 0.2 0.0 - 4.0 ng/mL [facility] - Comment: [facility] ECLIA methodology. According to the [employer] [employer], Serum PSA should decrease and [...] of malignant disease. Blood 05/08/2023 7:54 AM WANT AD RECEIVER 05/08/2023 Narrative [facility] - 05/09/2023 5:08 PM WANT AD RECEIVER Performed at: [address] [place], [place] [address], [place] [id number] Clinical Pharmacy Manager: Sampson Burks PhD, Phone: [phone] [facility] Mine Johnson NP LAB BLOOD ORDERABLES F inal Result [facility] - 01 from Last 3 Months or Most Recently Relevant to Health Maintenance Insurance [employer] [place] [address] [facility] Care Teams Release Manager Relationship Specialty Start Date End Date Savanah Das DO [address] [place] [address] PCP - General Family Medicine 01/11/21 Cinthia Bradford MD Family Practice 04/01/18 Giorgi David Jr., MD Referring Physician Urology 02/08/18 Robe Brenner MD [address] [id number] Consulting Physician Urology 02/08/18 Robby Rock MD [address] [facility] [address] [place], [place] [id number] Medical Oncologist/Audio Visual Aide Medical Oncology 02/08/18 Moe Boyd MD [address] [place], [place] [id number] Radiation Oncologist Radiation Oncology 03/04/18 Manny Martinez MD [address] [place] [address] Referring Physician Medical Oncology 03/04/18 Brittanie Johnson NP [address] [facility] [address] [place] [address] Nurse Practitioner Nurse Practitioner 07/13/20
--- OUTSIDE RECORDS SUMMARY | 2024-04-11 12:38 | XMS_ITS ---
Author Organization [facility] [address] [place] [address] Care Team Providers Care Social Work Program Coordinator Name Role Phone Cinthia Bradford MD Unavailable Frankie Nogueira MD, Giorgi Perry Unavailable Robe Brenner MD Unavailable [phone] Robby Rock MD Unavailable Moe Boyd MD Unavailable [phone] Manny Martinez MD Unavailable Brittanie Johnson NP Unavailable Savanah Das DO Primary Care Provider [phone] Active Problems Problem Noted Date Diagnosed Date [...]
[2024-04-11 13:16] LABS: Influenza A QL RT-PCR Negative (Negative); Influenza B QL RT-PCR Negative (Negative); RSV RNA, RT-PCR Negative (Negative); SARS-CoV-2 RNA PCR Negative (Negative)
== END 2024-04-11 12:22 | disposition home or self-care (01) ==
LOC: ANHLAB 12:22
PROVIDERS: PCP Family Medicine; Visit Provider Family Medicine
DX: R50.9 Fever, unspecified (principal)
CPT/HCPCS: 87637

== ENCOUNTER 2024-04-25 13:31 | Outpatient (CLI) | payer MEDICARE, SELFPAY ==
--- NOTE | ~2024-04-25 | CT_ITS ---
CT of the Abdomen and Pelvis: Indication: Hematuria Technique: 2.5 mm axial scans were obtained through the abdomen and pelvis prior to and following in travenous administration of 130 cc of Omnipaque 350. Dose reduction technique was used on this scan b y utilizing automated exposure control and iterative reconstruction technique. The dose-length produc t (DLP) was 2168.85 mGy-cm. Findings: Scans through the lung bases are unremarkable. The liver, spleen, pancreas, and adrenal glands are within normal limits. Small gallstone present. Mu ltiple bilateral nonobstructing renal stones are present, largest in the left kidney measuring 10 mm. There is a 5 mm stone at the very distal left ureter (image 109). No hydronephrosis or hydroureter o n either side. There are atherosclerotic calcifications of the aorta. No lymphadenopathy. No bowel obstruction or bowel wall thickening. There is evidence of prior partial right colectomy. Images through the pelvis were performed. Urinary bladder unremarkable. No pelvic mass seen. No ascit es. Impression: 5 mm distal left ureteral stone without hydronephrosis or hydroureter. Multiple additional bilateral nonobstructing renal stones. Reviewed, dictated and finalized at location . 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 Multiple additional bilateral nonobstructing renal stones.
[2024-04-25 13:55] LABS: Estimated Glomerular Filt Rate > 60
== END 2024-04-25 13:32 | disposition home or self-care (01) ==
LOC: MICIMG 13:32
PROVIDERS: PCP Family Medicine; Visit Provider Urology
DX: N20.1 Calculus of ureter (principal); N20.0 Calculus of kidney; R31.0 Gross hematuria
CPT/HCPCS: 74178; Q9967

== ENCOUNTER 2025-01-20 15:38 | Outpatient (CLI) | payer MEDICARE, SELFPAY ==
--- NOTE | ~2025-01-20 | MR_ITS ---
EXAM/PROCEDURE: MR abdomen wo/w con HISTORY: liver lesion COMPARISON: CT exam from April 25, 2024 TECHNIQUE: Multiplanar pre and postcontrast enhanced abdominal MRI performed. FINDINGS: In the lower right lobe, image 23 series 11, there is a 2.5 x 2.5 cm somewhat circumscribed appearing area of slightly increased signal. This appears slightly diminished on More prominent on postcontrast images such as image 4 3 series 12. No lesion is seen on postcontrast subtraction images. No lesion is seen on T2-weighted sequences. No compelling restricted diffusion. The spleen is upper limits normal in size. No splenic lesion or mass seen. Both kidneys appear normal. Aorta is normal in size. Bones appear normal in signal other than degenerative appearing changes. The gallbladder is slightly contracted with gall stones present but no gross wall thickening or pericholecystic fluid. No biliary ductal dilatation. IMPRESSION: 1. 2.5 x 2.5 cm area of heterogeneous enhancement in the right lobe of the liver may represent benign normal variant perfusion. Follow-up liver/abdominal MRI in 3 months is recommended or sooner if clinically appropriate. LI-RADS 3. 2. The gallbladder is slightly contracted with gall stones but no gross cholecystitis. Reviewed, dictated and finalized at location A. STOS BRAKE LINING FINISHER IMPRESSION: 1. 2.5 x 2.5 cm area of heterogeneous enhancement in the right lobe of the live r may represent benign normal variant perfusion. Follow-up liver/abdominal MRI in 3 months is recommended or sooner if clinically appropriate. LI-RADS 3. 2. The gallbladder is slightly contracted with gall stones but no gross cholecy stitis.
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
--- OUTSIDE RECORDS SUMMARY | 2025-01-20 15:45 | XMS_ITS | Encounter Summary ---
Author Organization [facility] Address [address] [place] [address] Care Team Providers Care Cash Posting Clerk Name Role Phone Cinthia Bradford MD Primary Care Provider Moe Boyd MD Primary Care Provider [phone] Cinthia Bradford MD Unavailable + [phone] Frankie Nogueira MD, Giorgi Perry Unavailable Robe Brenner MD Unavailable [phone] Robby Rock MD Unavailable [phone] Moe Boyd MD Unavailable [phone] Manny Martinez MD Unavailable [phone] Cinthia Bradford MD Primary Care Provider Abhinav Adams MD Primary Care Provider + [phone] Brittanie Johnson NP Unavailable [phone] Savanah Das DO Primary Care Provider + [phone] Nirali Obrien NP Primary Care Provider + [phone] Savanah Das DO Primary Care Provider + [phone] Encounter Details Date Type Department Care Team (Late st Contact Info) Description 03/04/2018 Telephone [facility] Radiation Oncology at [facility] [address] [place] [address] Clarisse Perrin MA Social History Tobacco Use Types Packs/Day Years Used Date Smoking Tobacco: Never Smokeless Tobacco: Never Alcohol Use Standard Drinks/Week Comments Yes 1 (1 standard drink = 0.6 oz pur e alcohol) Sex and Gender Information Value Date Recorded Sex Assigned at Not on file 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 Gender Identity Male 11/10/2022 9:57 PM CDT Sexual Orientation Straight 11/10/2022 9: 57 PM CDT documented as of this encounter Functional Status documented as of this encounter Plan of Treatment Not on file documented as of this encounter Visit Diagnoses Not on filedocumented in this encounter Care Teams Cash Posting Clerk Relationship Specialty Start Date End Date Cinthia Bradford MD PCP - General Family Practice 07/15/17 03/31/18 Moe Boyd MD [address] [place] [address] PCP - General 04/01/18 04/21/18 Cinthia Bradford MD PCP - General 04/22/18 08/26/18 Abhinav Adams MD [address] [place] [address] PCP - General 08/27/18 01/10/21 Savanah Das DO [address] [place] [address] PCP - General Family Medicine 01/11/21 11/30/24 Nirali Obrien, LEANDRA [address] [place] [address] [place] [address] PCP - General Internal Medicine 12/01/24 01/08/25 Savanah Das DO [address] [place] [address] [address] [place] [address] PCP - General Family Medicine 01/09/25 Cinthia Bradford MD Family Practice 04/01/18 Giorgi David Jr., MD [address] [place], [place] [address] Referring Physician Urology 02/08/18 Robe Brenner MD [address] [place] [address] Consulting Physician Urology 02/08/18 Robby Rock MD [address] [place] [address] [address] [place], [place] [id number] Medical Oncologist/Alteration Hand Medical Oncology 02/08/18 Moe Boyd MD [address] [place] [address] Radiation Oncologist Radiation Oncology 03/04/18 Manny Martinez MD [address] [facility] [address] [place], [place] [address] Referring Physician Medical Oncology 03/04/18 Brittanie Johnson NP [address] [place] [address] Nurse Practitioner Nurse Practitioner 07/13/20 documented as of this encounter
--- OUTSIDE RECORDS SUMMARY | 2025-01-20 15:45 | XMS_ITS | Encounter Summary ---
Author Organization [facility] Address [address] [place] [address] Care Team Providers Care Engineer Operations And Maintenance Name Role Phone Cinthia Bradford MD Unavailable [phone] Frankie Nogueira MD, Giorgi Perry Unavailable Robe Brenner MD Unavailable [phone] Robby Rock MD Unavailable [phone] Moe Boyd MD Unavailable [phone] Manny Martinez MD Unavailable [phone] Cinthia Bradford MD Primary Care Provider Abhinav Adams MD Primary Care Provider + [phone] Brittanie Johnson NP Unavailable [phone] Savanah Das DO Primary Care Provider + [phone] Nirali Obrien NP Primary Care Provider + [phone] Savanah Das DO Primary Care Provider + [phone] Encounter Details Date Type Department Care Team (Late st Contact Info) Description 06/22/2018 Telephone [facility] Radiation Oncology at [facility] [address] [place] [address] Clarisse Perrin MA Social History Tobacco Use Types Packs/Day Years Used Date Smoking Tobacco: Never Smokeless Tobacco: Never Alcohol Use Standard Drinks/Week Comments Yes 1 (1 standard drink = 0.6 oz pur e alcohol) Sex and Gender Information Value Date Recorded Sex Assigned at Not on file 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 Gender Identity Male 11/10/2022 9:57 PM CDT Sexual Orientation Straight 11/10/2022 9: 57 PM CDT documented as of this encounter Plan of Treatment Not on file documented as of this encounter Visit Diagnoses Not on filedocumented in this encounter Care Teams Engineer Operations And Maintenance Relationship Specialty Start Date End Date Cinthia Bradford MD PCP - General 04/22/18 08/26/18 Abhinav Adams MD [address] [place] [address] PCP - General 08/27/18 01/10/21 Savanah Das DO [address] [facility] [address] [place] [address] PCP - General Family Medicine 01/11/21 11/30/24 Nirali Obrien NP [address] [facility] [address] [place] [address] PCP - General Internal Medicine 12/01/24 01/08/25 Savanah Das DO [address] [facility] [address] [place], [place] [address] PCP - General Family Medicine 01/09/25 Cinthia Bradford MD Family Practice 04/01/18 Giorgi David Jr., MD Referring Physician Urology 02/08/18 Robe Brenner MD [address] [place] [address] Consulting Physician Urology 02/08/18 Robby Rock MD 10 [facility] [address] [place], [place] [id number] Medical Oncologist/Archaeology Professor Medical Oncology 02/08/18 Moe Boyd MD [address] [place] [address] Radiation Oncologist Radiation Oncology 03/04/18 Manny Martinez MD [address] [place] [address] Referring Physician Medical Oncology 03/04/18 Brittanie Johnson NP [address] [place] [address] Nurse Practitioner Nurse Practitioner 07/13/20 documented as of this encounter
--- OUTSIDE RECORDS SUMMARY | 2025-01-20 15:45 | XMS_ITS | Encounter Summary ---
Author Organization [facility] Address [address] [place] [address] Care Team Providers Care Retail Field Supervisor Name Role Phone Cinthia Bradford MD Unavailable [phone] Frankie Nogueira MD, Giorgi Perry Unavailable Robe Brenner MD Unavailable [phone] Robby Rock MD Unavailable Moe Boyd MD Unavailable Manny Martinez MD Unavailable Brittanie Johnson NP Unavailable Savanah Das DO Primary Care Provider [phone] Reason for Referral * MRI/CAT/PET Scan (Routine) - Pending Review Specialty Diagnoses / Procedures Referred By Nargis t Referred To Contact Radiology Diagnoses Liver lesion Procedures MRI [place]domen [place] [address] [place] [address] Phone: tel: fax: [address] [address] Referral ID Status Reason Start Date Expiration Date V isits Requested Visits Authorized [id number] Pending Review 01/19/2025 02/18/2026 1 1 H AND TRUING MACHINE OPERATOR Encounter Details Date Type Department Care Team (Late st Contact Info) Description 01/19/2025 Orders Only [facility]geon [address] [place] [address] [place] [address] [place] [address] Liver lesion (Primary Dx) Social History Tobacco Use Types Packs/Day Years [...] on file 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 Gender Identity Male 11/10/2022 9:57 PM CDT Sexual Orientation Straight 11/10/2022 9: 57 PM CDT documented as of this encounter Plan of Treatment Scheduled Orders Name Type Priority Associated Diagnoses Orde r Schedule MRI Abdomen Liver W WO Contrast Imaging Schedule JENNIFER, Read JENNIFER (Appt Today, Awaiting Results) Liver lesion Expected: 01/19/2025, Expires: 01/19/2026 documented as of this encounter Visit Diagnoses Diagnosis Liver lesion- Primary Other specified disorders of liver documented in this encounter Care Teams Retail Field Supervisor Relationship Specialty Start Date End Date Savanah Das DO [facility] [address] [place] [address] PCP - General Family Medicine 01/09/25 Cinthia Bradford MD Family Practice 04/01/18 Giorgi David Jr., MD Referring Physician Urology 02/08/18 Robe Brenner MD [address] [place] [address] Consulting Physician Urology 02/08/18 Robby Rock MD 10 [facility] [address] [place] [address] Medical Oncologist/Long Term Acute Care Registered Nurse Medical Oncology 02/08/18 Moe Boyd MD [address] [place] [address] Radiation Oncologist Radiation Oncology 03/04/18 Manny Martinez MD [address] [place] [address] Referring Physician Medical Oncology 03/04/18 Brittanie Johnson NP [address] [place] [address] Nurse Practitioner Nurse Practitioner 07/13/20 documented as of this encounter
--- OUTSIDE RECORDS SUMMARY | 2025-01-20 15:45 | XMS_ITS ---
Author Organization [facility] [address] Address [address] [place] [address] Care Team Providers Care Inpatient Coder Name Role Phone Cinthia Bradford MD Unavailable [phone] Frankie Nogueira MD, Giorgi Perry Unavailable [phone] Robe Brenner MD Unavailable [phone] Robby Rock MD Unavailable Moe Boyd MD Unavailable Manny Martinez MD Unavailable Brittanie Johnson NP Unavailable [phone] Savanah Das DO Primary Care Provider [phone] Active Problems Problem Noted Date Diagnosed Date Gross hematuria 11/01/2024 Calculus of kidney 05/09/2024 Calculus of ureter 05/09/2024 Paroxysmal atrial fibrillation 10/29/2021 Encounter for follow-up surveillance of prostate cancer 06/18/2018 Prostate cancer 02/19/2018 Cancer Staging:Clinical stage from 03/04/2018:Stage CATRACHITO(cT3b, cN1, cM0, PSA: 32, Grade Group: 3) - Signed by Jonathan Katz MD on 03/04/2018 Chronic atrial fibrillation 09/22/2017 Current Treatment and Therapy Plans LEUPROLIDE (LUPRON) FOR RADIATION ONCOLOGY* Plan Start Date:02/25/2019 Plan Provider:Moe Boyd MD Linked Problems Prostate cancer (HCC) Treatment Medications leuprolide acetate (6 month) (LUPRON) syringe kit Past Treatment and Therapy Plans Specialty Infusion Treatment Plan Name Start Date Discontinue Date Treatment Medications Discontinue Reason Plan Provider LEUPROLIDE (LUPRON) FOR RADIATION ONCOLOGY 08/27/2018 11/26/2018 leuprolide acetate (6 month) (LUPRON) syringe kit Therapy Complete Moe Boyd MD Radiation Treatments * Course C1 Pelvis 2019 04/20/2018 - 05/24/2018 Treatment Period Energy Fraction Dose Fractions Total Dose Plans Planned PELVIS 04/20/2018 - 05/24/2018 220 25 / 5,500 Reference Points Delivered Pelvis_Nodes 04/20/2018 - 05/24/2018 5,500 Lifetime Dose Tracking * Chemical Lifetime Dose Automatic Entry Manual Entr y Fluoro Time 0.2 minutes 0.2 minutes 0 minutes Air kerma at the reference point (Ka,r) 9.6 mGy 9 .6 mGy 0 mGy
--- OUTSIDE RECORDS SUMMARY | 2025-01-20 15:45 | XMS_ITS | Clinical Summary ---
Author Organization [facility] Address [address] [place] [address] Care Team Providers Care Messaging Architect Name Role Phone Unavailable Primary Care Provider [...] Td Vaccines ( 1 - Tdap) 1973 Pneumococcal Vaccine: 50+ Ye ars (1 of 1 - PCV) 2004 Zoster Vaccines (1 of 2) 2004 COVID-19 Vaccine ( - 2024-2 6 season) 2024 Influenza Adult (#1) 2024 RSV Immunization or 60+ Years (1 - 1-dose 75+ series) 2029 Hepatitis A Vaccines Aged Out No long er eligible based on patient's age to complete this topic Meningococcal B Vaccine Aged Out No l onger eligible based on patient's age to complete this topic Meningococcal Vaccine Aged Out No kristopher luana eligible based on patient's age to complete this topic RSV Immunizations Under 20 Months Aged Out No longer eligible based on patient's age to complete this topic
--- OUTSIDE RECORDS SUMMARY | 2025-01-20 15:45 | XMS_ITS | Encounter Summary ---
Author Organization [facility] Address [address] [place] [address] Care Team Providers Care Wellness Nurse Name Role Phone Cinthia Bradford MD Unavailable [phone] Frankie Nogueira MD, Giorgi Perry Unavailable [phone] Robe Brenner MD Unavailable [phone] Robby Rock MD Unavailable Moe Boyd MD Unavailable Manny Martinez MD Unavailable Brittanie Johnson NP Unavailable Nirali Obrien NP Primary Care Provider [phone] Savanah Das DO Primary Care Provider [phone] Reason for Referral * MRI/CAT/PET Scan (Routine) - Closed Specialty Diagnoses / Procedures Referred By Contac t Referred To Contact Radiology Diagnoses Prostate carcinoma (HCC) Procedures PET/CT PROSTATE CANCER [place] [address] [place] [address] Phone: tel: fax: [address] [address] Referral ID Status Reason Start Date Expiration Date Visits Re quested Visits Authorized [id number] Closed 01/10/2025 02/24/2025 2 2 CLING OR RUBBISH COLLECTOR Encounter Details Date Type Department Care Team (Late st Contact Info) Description 01/05/2025 Community Orders [facility] [place] [address] [place] [address] Prostate carcinoma (HCC) (Primary Dx) Social History Tobacco Use Types [...] on file 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 Focal intense tracer uptake in the [...] Yeimy Rahman M.D. Narrative 01/17/2025 5:50 PM RECYCLING OR RUBBISH COLLECTOR EXAMINATION: PSMA-PET/CT DATE OF STUDY: 01/17/2025 SCANNER: [facility] Screenz (SQ1). This is a high-resolution scanner, which can result in higher SUVs (and even detection of previously unrecognized small lesions) compared to older scanners. RADIOPHARMACEUTICAL: 9.53 mCi F-18 DCFPyL (Piflufolastat) i.v. Injection site: Right hand HISTORY: 69-year-old man with prostate cancer diagnosed in 2019. [place] score 4+3 = 7. He has been [...] obtained. The study was interpreted on the WedPics (deja mi) workstation. The total scanned area was mid [...] EXAMINATION: PSMA-PET/CT DATE OF STUDY: 01/17/2025 SCANNER: [facility] Screenz (SQ1). This is a high-resolution scanner, which can result in higher SUVs (and even detection of previously unrecognized small lesions) compared to older scanners. RADIOPHARMACEUTICAL: 9.53 mCi F-18 DCFPyL (Piflufolastat) i.v. Injection site: Right hand HISTORY: 69-year-old man with prostate cancer diagnosed in 2019. [place] score 4+3 = 7. He has been [...] obtained. The study was interpreted on the [employer]Pics (deja mi) workstation. The total scanned area was mid [...] MD IMG PET PROCEDURES F inal Result documented in this encounter Visit Diagnoses Diagnosis Prostate carcinoma (HCC)- Primary Prostate carcinoma (HCC) documented in this encounter Care Teams Wellness Nurse Relationship Specialty Start Date End Date Nirali Obrien NP [facility] [facility] [address] [place], [place] [address] PCP - General Internal Medicine 12/01/24 01/08/25 Savanah Das DO [address] [place] [address] [address] [place] [address] PCP - General Family Medicine 01/09/25 Cinthia Bradford MD Family Practice 04/01/18 Giorgi David Jr., MD Referring Physician Urology 02/08/18 Robe Brenner MD [address] [address] Consulting Physician Urology 02/08/18 Robby Rock MD 10 [facility] [address] [place], [place] [id number] Medical Oncologist/Wood Veneer Taper Medical Oncology 02/08/18 Moe Boyd MD [address] [place] [address] Radiation Oncologist Radiation Oncology 03/04/18 Manny Martinez MD [address] [place] [address] Referring Physician Medical Oncology 03/04/18 Brittanie Johnson NP [address] [place] [address] Nurse Practitioner Nurse Practitioner 07/13/20 documented as of this encounter
== END 2025-01-20 15:39 | disposition home or self-care (01) ==
PROVIDERS: PCP Nurse Practitioner; Visit Provider Urology
DX: R93.2 Abnormal findings on diagnostic imaging of liver and biliary tract (principal); K76.9 Liver disease, unspecified; K80.20 Calculus of gallbladder without cholecystitis without obstruction
CPT/HCPCS: 74183; A9577